=== PATIENT | female | born 1995 | race Caucasian/White ===

== ENCOUNTER 2017-03-24 09:09 | Emergency (ER) | payer BC ==
--- NOTE | 2017-03-24 10:00 | UC ---
Respiratory Complaint HPI - HPI Summary HPI Summary: Cough, congestion, chills for about 5 days. No known fever. There is some pain with deep breaths. - History of Current Complaint Stated Complaint: HEADACHE,COUGH Time Seen by Provider: 03/24/17 09:47 Hx Obtained From: Patient Hx Last Menstrual Period: NOW ?: No Onset/Duration: Gradual Onset, Lasting Days Timing: Constant Severity Initially: Moderate Severity Currently: Moderate Character: Cough: Nonproductive Aggravating Factors: Deep Breaths, Recumbent Position Alleviating Factors: Upright Position, Spontaneous Resolution Associated Signs And Symptoms: Positive: Chills, URI, Nasal Congestion. Negative: Pleuritic Chest Pain, Dizziness, Calf Pain, Calf Swelling, Sinus Discomfort - Allergies/Home Medications Allergies/Adverse Reactions: Allergies Allergy/AdvReac Type Severity Reaction Status Date / Time Cefaclor [From [facility] [place]] Allergy Unknown Unknown Verified 07/09/14 18:21 Reaction Details Sulfa Antibiotics Allergy Unknown Unknown Verified 07/09/14 18:21 Reaction Details PMH/Surg Hx/FS Hx/Imm Hx Previously Healthy: Yes - Surgical History Surgical History: None - Family History Known Family History: Positive: Other - No respiratory family history. - Social History Occupation: Employed Full-time Alcohol Use: Occasionally Substance Use Type: None Smoking Status (MU): Never Smoked Tobacco Review of Systems Constitutional: Chills ENT: Sinus Congestion Respiratory: Cough All Other Systems Reviewed And Are Negative: Yes Physical Exam Triage Information Reviewed: Yes Appearance: Well-Appearing, No Pain Distress, Well-Nourished Vital Signs Reviewed: Yes Eyes: Positive: Conjunctiva Clear ENT: Positive: Normal ENT inspection, Pharyngeal erythema, Nasal congestion, TMs normal, Uvula midline. Negative: TM bulging, TM dull, TM red, Tonsillar swelling, Tonsillar exudate, Trismus, Sinus tenderness Neck: Positive: Supple, Nontender, No Lymphadenopathy Respiratory: Positive: Lungs clear, Normal breath sounds, No respiratory distress, No accessory muscle use. Negative: Respiratory distress, Decreased breath sounds, Accessory muscle use, Crackles, Rhonchi, Stridor, Wheezing, Expiration Cardiovascular: Positive: No Murmur, Pulses Normal, Brisk Capillary Refill Abdomen Description: Positive: No Organomegaly, Soft. Negative: Distended, Guarding Musculoskeletal: Positive: Strength Intact, ROM Intact, No Edema Neurological: Positive: Alert, Muscle Tone Normal. Negative: Fatigued Psychological: Positive: Age Appropriate Behavior Skin: Negative: rashes Respiratory Course/Dx - Course Course Of Treatment: supporitve care including decongestants and cough suppressants. No signs of bacterial infection or pneumonia clinically. - Differential Dx/Diagnosis Provider Diagnoses: uri Discharge - Discharge Plan Condition: Good Disposition: HOME Prescriptions: Benzonatate CAP* [Tessalon 100 MG CAP*] 100 mg PO TID PRN #30 cap PRN Reason: Cough Patient Education Materials: Upper Respiratory Infection (ED) Referrals: Berenice Swartz [Primary Care Provider] - Additional Instructions: decongestants and cough suppressant.
[2017-03-24 10:13] VITALS: BP 121/72
== END 2017-03-24 10:18 | disposition home or self-care (01) ==
LOC: UCCORT 09:09
DX: J06.9 Acute upper respiratory infection, unspecified (principal); Z88.1 Allergy status to other antibiotic agents; Z88.2 Allergy status to sulfonamides
CPT/HCPCS: 99212; G0463